=== PATIENT | female | born 1980 | race Caucasian/White ===

== ENCOUNTER 2017-06-20 17:32 | Emergency (ER) | payer MEDICAID ==
[2017-06-20 17:38] VITALS: TEMP 98.1; O2SAT 99
[2017-06-20] MEDS ORDERED: KETOROLAC 30 MG/1 ML SDV IVP ONE (17:57)
[2017-06-20] MEDS ORDERED: ONDANSETRON 4 MG/2 ML VIAL IVP ONE (17:57)
--- NOTE | 2017-06-20 18:11 | EDPHY ---
H & P Stated Complaint: abd pain Time Seen by Provider: 06/20/17 17:39 HPI/ROS: CHIEF COMPLAINT: RLQ abdominal pain HISTORY OF PRESENT ILLNESS: The patient is a 37 y/o female arriving in [employer] custody from the [facility] complaining of intermittent RLQ pain onset today. She reports her pain today feels exactly the same as a prior episode in April. At that time, she was evaluated at [facility] and had a negative abdomen/pelvis CT and pelvic US. She was discharged back to [facility] in good condition without finding an obvious cause for her pain. Her pain is localized to the right side of her abdomen and is associated with a couple episodes of vomiting and diarrhea today. She says pushing on her abdomen alleviates her pain. She denies fever, cough, flank pain, dysuria, vaginal discharge, chest pain, dyspnea, or other symptoms. She has a history of a partial hysterectomy and is no longer menstruating. No history of kidney stones or other medical conditions. REVIEW OF SYSTEMS: Constitutional: No fever, no chills Eyes: No visual changes ENT: No sore throat Respiratory: No cough, no shortness of breath Cardiac: No chest pain Gastrointestinal: see HPI Genitourinary: No hematuria, no dysuria Musculoskeletal: No leg pain or swelling Skin: No rash Neurological: No headache, no numbness, no weakness Psychiatric: No depression - Personal History LMP (Females 10-55): Hysterectomy Current Tetanus Diphtheria and Acellular Pertussis (TDAP): No Tetanus Vaccine Date: 2006 - Medical/Surgical History PMH: Partial hysterectomy, assumed left oophorectomy per [facility] note. Prior records reviewed including faxed [facility] note from 04/19/17. Negative abdomen/pelvis CT and pelvic US at that time. Hx Asthma: No Hx Chronic Respiratory Disease: No Hx Diabetes: No Hx Cardiac Disease: No Hx Renal Disease: No Hx Cirrhosis: No Hx Alcoholism: No Hx HIV/AIDS: No Hx Splenectomy or Spleen Trauma: No Other PMH: uterine ca 2008 w/ hyst - Social History Smoking Status: Current every day smoker Drug Use: Heroin Additional Social History: Smokes cigarettes. Moderate alcohol use. Prior history of IV drug use. Currently resides at the [facility], [employer] officer at bedside. - Physical Exam Exam: General Appearance: Alert, pleasant, cooperative Eyes: Pupils equal and round, no conjunctival pallor or injection ENT, Mouth: Mucous membranes moist Neck: Normal inspection Respiratory: Lungs are clear to auscultation Cardiovascular: Regular rate and rhythm Gastrointestinal: Abdomen is soft, RLQ tenderness to palpation, no peritoneal signs Neurological: A&O, nonfocal exam Skin: Warm and dry, no rash Extremities: Normal inspection Psychiatric: Mood and affect normal Constitutional: Initial Vital Signs Temperature (C) 36.7 C 06/20/17 17:36 Heart Rate 81 06/20/17 17:36 Respiratory Rate 16 06/20/17 17:36 Blood Pressure 182/106 H 06/20/17 17:36 O2 Sat (%) 99 06/20/17 17:36 O2 Delivery Mode Room Air Allergies/Adverse Reactions: No Known Drug Allergies Allergy (Verified 06/20/17 18:39) Medical Decision Making - Diagnostics Imaging Results: Pelvic ultrasound: appendix non-visualized CT abd/pelvis: normal appendix, constipation Imaging: Discussed imaging studies w/ call worker person Radiologist ED Course/Re-evaluation: This is a 37 y/o female presents with a few hour history of RLQ abdominal pain and vomiting. Previous evaluations and imaging for these symptoms at [facility] were unremarkable. She has RLQ tenderness on exam. She is afebrile. Plan for IV , labs, pelvic and abdominal US, and symptom management. 15mg IV Toradol, 4mg IV Zofran, 1L IV NS administered. 1915: Reevaluated patient. Abdomen remains soft, though continues to have significant RLQ tenderness and pain. Pelvic and abdominal ultrasounds are inconclusive. Plan for abdominal CT for better visualization. CT shows a normal appendix and constipation. Reassessed patient and discussed findings. She declined an enema. Abdominal exam remains benign on discharge. No vomiting. She will be discharged with magnesium citrate and standard constipation care and follow up instructions. Return precautions discussed. She agrees with plan for discharge. Differential Diagnosis: Differential diagnosis includes though it is not limited to appendicitis, cholecystitis, diverticulitis, pyelonephritis, bowel perforation, small bowel obstruction. - Data Points Laboratory Results: Laboratory Results 06/20/17 18:10 Medications Given: Discontinued Medications Acetaminophen (Tylenol) 650 mg PO EDNOW ONE Stop: 06/20/17 19:19 Last Admin: 06/20/17 19:33 Dose: 650 mg Ketorolac Tromethamine (Toradol) 15 mg IVP EDNOW ONE Stop: 06/20/17 17:58 Last Admin: 06/20/17 18:40 Dose: Not Given Ketorolac Tromethamine (Toradol) 15 mg IM EDNOW ONE Stop: 06/20/17 18:31 Last Admin: 06/20/17 18:34 Dose: 15 mg Magnesium Citrate (Magnesium Citrate) 300 ml PO ONCE ONE Stop: 06/20/17 20:29 Last Admin: 06/20/17 20:38 Dose: 300 ml Ondansetron HCl (Zofran) 4 mg IVP EDNOW ONE Stop: 06/20/17 17:58 Last Admin: 06/20/17 18:40 Dose: Not Given Ondansetron HCl (Zofran Odt) 4 mg PO EDNOW ONE Stop: 06/20/17 18:31 Last Admin: 06/20/17 18:33 Dose: 4 mg Departure - Departure Disposition: Home, Routine, Self-Care Clinical Impression: Abdominal pain Qualifiers: Abdominal location: right lower quadrant Qualified Code(s): R10.31 - Right lower quadrant pain Constipation Qualifiers: Constipation type: slow transit constipation Qualified Code(s): K59.01 - Slow transit constipation Condition: Good Instructions: Magnesium Citrate (By mouth), Constipation (ED), Acute Abdominal Pain (ED) Additional Instructions: 1. Take magnesium citrate as directed for constipation. Increase fluid and fiber intake. 2. Use Tylenol or ibuprofen as directed on the packaging as needed for pain for the next 2-3 days. 3. Follow up with your primary care provider for unimproved symptoms over the next few days. 4. Return for worsening of condition. Referrals: [facility],. [Clinic] - As per Instructions Report Scribed for: Toyin Wright Report Scribed by: Mónica Adamson Date of Report: 06/20/17 Time of Report: 18:11 Physician Review and Approval Statement: 06/20/17 18:11 Portions of this note were transcribed by a medical accounts receivable specialist. I personally performed a history, physical exam, medical decision making, and confirmed accuracy of information the transcribed note.
[2017-06-20 18:20] LABS: % IMMATURE GRANULYOCYTES 0.4 % (0.0-1.1); ABSOLUTE IMMATURE GRANULOCYTES 0.03 10^3/uL (0.00-0.10); ADD DIFF? NO; ADD MORPH? NO; ADD SCAN? NO; ATYPICAL LYMPHOCYTE FLAG 0 (0-99); FRAGMENT RBC FLAG 0 (0-99); HEMATOCRIT 48.4 % (38.0-47.0); HEMOGLOBIN 17.2 g/dL (12.6-16.3); LEFT SHIFT FLG 0 (0-99); LIPEMIA HEMOLYSIS FLAG 90 (0-99); MEAN CELL HEMOGLOBIN 30.2 pg (27.9-34.1); MEAN CELL HEMOGLOBIN CONCENTR. 35.5 g/dL (32.4-36.7); MEAN CELL VOLUME 84.9 fL (81.5-99.8); MEAN PLATELET VOLUME 8.5 fL (8.7-11.7); PLATELET CLUMPS FLAG 10 (0-99); PLATELET COUNT 237 10^3/uL (150-400); RED CELL DISTRIBUTION WIDTH 12.8 % (11.5-15.2)
[2017-06-20] MEDS ORDERED: ONDANSETRON DISINTEGRATING 4 MG TAB ONE (18:28)
[2017-06-20] MEDS ORDERED: KETOROLAC 15 MG/1 ML SDV ONE (18:28)
[2017-06-20] MEDS ORDERED: ONDANSETRON DISINTEGRATING 4 MG TAB PO ONE (18:30)
[2017-06-20] MEDS ORDERED: KETOROLAC 30 MG/1 ML SDV IM ONE (18:30)
[2017-06-20 18:40] LABS: BILIRUBIN,TOTAL 0.6 mg/dL (0.1-1.4); BILIRUBIN-CONJUGATED 0.5 mg/dL (0.0-0.5); BILIRUBIN-UNCONJUGATED 0.1 mg/dL (0.0-1.1); TOTAL PROTEIN 7.4 g/dL (6.3-8.2)
[2017-06-20 18:55] LABS: COLOR YELLOW; LEUKOCYTE ESTERASE,URINE NEGATIVE (NEGATIVE); NITRITE,URINE NEGATIVE (NEGATIVE)
[2017-06-20] MEDS ORDERED: ACETAMINOPHEN 325 MG TAB PO ONE (19:18)
[2017-06-20 19:34] VITALS: RESP 18
[2017-06-20] MEDS ORDERED: MAGNESIUM CITRATE 300 ML BOTTLE PO ONE (20:28)
[2017-06-20 20:49] VITALS: BP 136/98; PULSE 86
== END 2017-06-20 20:49 | disposition home or self-care (01) ==
DX: K59.01 Slow transit constipation (principal); F17.200 Nicotine dependence, unspecified, uncomplicated; Z90.710 Acquired absence of both cervix and uterus
CPT/HCPCS: J1885; J2405